=== PATIENT | female | born 1990 | race Caucasian/White ===

== ENCOUNTER 2021-07-10 12:51 | Inpatient (IN) | payer BC, OTHER ==
[2021-07-10] MEDS ORDERED: Lidocaine 1% (PF) 30 ML VIAL SC PRN (14:36)
[2021-07-10] MEDS ORDERED: Misoprostol 200 MCG TAB PR PRN (14:36)
[2021-07-10] MEDS ORDERED: Promethazine HCl 25 MG/ML VIAL IM PRN (14:36)
[2021-07-10] MEDS ORDERED: Carboprost 250 MCG/ML AMP IM PRN (14:36)
[2021-07-10] MEDS ORDERED: Acetaminophen 500 MG TAB PO PRN (14:36)
[2021-07-10] MEDS ORDERED: Methylergonovine 0.2 MG/ML VIAL IM PRN (14:36)
[2021-07-10] MEDS ORDERED: Ibuprofen 800 MG TAB PO PRN (14:36)
[2021-07-10] MEDS ORDERED: hydrALAZINE 20 MG/ML VIAL SLOW IVP PRN (14:36)
[2021-07-10] MEDS ORDERED: Ondansetron PF 4 MG/2 ML Vial IVP PRN (14:36)
[2021-07-10] MEDS ORDERED: NS w/ Oxytocin 30 units 500 ML IVPB SCH (14:45)
[2021-07-10] MEDS ORDERED: NS w/ Oxytocin 30 units 500 ML IV SCH ×2 (14:45)
[2021-07-10 15:01] LABS: Hemoglobin 13.2 g/dL (12.0-15.5); Mean Corpuscular HGB CONC 33.8 g/dL (32.0-36.0); Mean Corpuscular Hemoglobin 31.8 pg (27.0-33.0); Mean Corpuscular Volume 94.2 fl (81.6-98.3); Mean Platelet Volume 10.7 fl (7.4-10.4); Platelet Count 257 10x3/uL (150-450); Red Blood Cell (RBC) Count 4.15 10x6/uL (3.90-5.03); White Blood Cell (WBC) Count 10.7 10x3/uL (3.5-10.5)
[2021-07-10 15:31] LABS: D-Dimer Test 1.03 mg/L FEU (0.19-0.50); INR-International Normal Ratio 0.9; PTT 24.5 sec (22.0-33.0); Prothrombin Time 9.6 sec (9.5-12.1)
[2021-07-10 16:10] VITALS: BMI 24.2
[2021-07-10 17:32] LABS: SARS-CoV-2 NAA Rapid Test Not Detected (NotDetected)
[2021-07-11] MEDS: Lactated Ringer's 1,000 ML IV SCH ×3 (06:56→11:35)
[2021-07-11] MEDS ORDERED: Fentanyl 2 mcg/Bup 0.1% Cadd 100 ML ONE (11:13)
[2021-07-11] MEDS ORDERED: Naloxone HCl 0.4 mg/ml Vial IVP PRN ×2 (11:54)
[2021-07-11] MEDS ORDERED: Ondansetron PF 4 MG/2 ML Vial IVP PRN (11:54)
[2021-07-11] MEDS ORDERED: Promethazine HCl 25 MG/ML VIAL IM PRN (11:54)
[2021-07-11] MEDS ORDERED: diphenhydrAMINE 50 MG/ML VIAL IVP PRN (11:54)
[2021-07-11] MEDS ORDERED: Acetaminophen 325 MG TAB PO PRN (11:54)
[2021-07-11] MEDS ORDERED: Lactated Ringer's 500 ML IV PRN (11:54)
[2021-07-11] MEDS ORDERED: ePHEDrine Sulfate 50 MG/10 ML VIAL SLOW IVP PRN (11:54)
[2021-07-11] MEDS ORDERED: Hydrocerin (Eucerin) Cream 120 gm Jar TOP PRN (11:54)
[2021-07-11] MEDS ORDERED: Communication Order-Pharmacy FS SCH (12:00)
[2021-07-11] MEDS ORDERED: Fentanyl 2 mcg/Bupivacaine 0.1% Cassette 100 ML EPIDURAL SCH (12:00)
== END 2021-07-11 20:50 | disposition home or self-care (01) | DRG 805 ==
LOC: CSHLD/OP 12:51 → CSHLD 15:17
PROVIDERS: ADMIT Obstetrics & Gynecology; ATTEND Obstetrics & Gynecology
PROC: 0U7C7ZZ Dilation of Cervix, Via Natural or Artificial Opening (ICD-10-PCS; 2021-07-10)
PROC: 10907ZC Drainage of Amniotic Fluid, Therapeutic from Products of Conception, Via Natural or Artificial Opening (ICD-10-PCS; 2021-07-10)
PROC: 3E033VJ Introduction of Other Hormone into Peripheral Vein, Percutaneous Approach (ICD-10-PCS; 2021-07-10)
PROC: 10E0XZZ Delivery of Products of Conception, External Approach (ICD-10-PCS; principal; 2021-07-11)
DX: O36.4XX0 Maternal care for intrauterine death, not applicable or unspecified (principal); O88.82 Other embolism in childbirth; Z37.1 Single stillbirth; Z3A.33 33 weeks gestation of pregnancy; Z20.822 Contact with and (suspected) exposure to COVID-19; O69.1XX0 Labor and delivery complicated by cord around neck, with compression, not applicable or unspecified
CPT/HCPCS: 51702; 76815; 85027; 85049; 85300; 85362; 85379; 85384; 85610; 85730; 86850; 86900; 86901; 88307; 99285; J2590; J7120; U0002